=== PATIENT | female | born 1985 | race African-American/Black ===

== ENCOUNTER 2024-05-29 19:07 | Emergency (ER) | payer BC, SELFPAY ==
[2024-05-29 19:42] VITALS: BP 187/121; PULSE 126; RESP 18; TEMP 36.3; O2SAT 96; BMI 34.1
--- NOTE | 2024-05-29 19:42 | ED.GENADULT ---
HPI - General Adult General Chief complaint: General Medical Stated complaint: high blood pressure/heart rate elevated Time Seen by Provider: 05/29/24 20:17 Source: patient Mode of arrival: ambulatory Limitations: no limitations History of Present Illness ED Provider: Asa John DO HPI narrative: 39-year-old female a prolonged history of hypertension who has not taken her oral antihypertensive therapy in the past 3 weeks as well as daily alcohol use of 1 box of wine and a pt of vodka daily in the last drink being yesterday presents to the ED due to elevated blood pressure and heart rate at home. Patient states she has had a lot of anxiety recently with concerns for left breast cancer. She states she went to the appointment today and was ultimately diagnosed with eczema. Her blood pressure and heart rate were elevated at that time then she was advised to report here for further evaluation. She states she does feel she has a problem with alcohol use and has tried to quit in the past, successfully for a couple of weeks and has gone to AA. She states she has not improve with naltrexone or disulfiram in the past. She takes Adderall occasionally, took it today and has not have her antihypertensive therapy for the past few weeks because she has lost follow up with her primary care provider. She denies any symptoms at this time including concerns for withdrawal, nausea, vomiting, abdominal pain, chest pain, difficulty breathing, exertional symptoms, decreased urination or lower extremity swelling. Related Data Previous Rx's ?Medication ?Instructions ?Recorded losartan 50 mg-hydrochlorothiazide 1 tab PO DAILY #30 tabs 05/29/24 12.5 mg tablet Allergies Allergy/AdvReac Type Severity Reaction Status Date / Time No Known Allergies Allergy Verified 05/29/24 19:46 Review of Systems Review of Systems: Yes all other systems are reviewed and are negative COUNTS INCLUDE 234 BEDS AT THE [facility] Social History Social History Alcohol intake: current Alcohol intake frequency: 3 or more drinks per day Alcohol type: wine and hard liquor Smoked in Last 30 Days: No Use of substances other than those prescribed or required for medical reasons: No Advance Directives: No Advance Directives Information Provided: Yes Do you have a plan to hurt others: No Plan Physical Exam ED Vital Signs: Vital Signs - 24 hr 05/29/24 19:42 05/29/24 20:51 Temperature 97.3 F Pulse Rate 126 H 109 H Respiratory Rate 18 16 Blood Pressure 187/121 H 149/108 H Pulse Oximetry 96 97 Oxygen Delivery Method Room Air Room Air BMI result Body Mass Index 34.1 Constitutional: ?Alert, oriented, speaking in full sentences, tearful at times but reassured with conversation HEENT: ?Normocephalic, atraumatic. ? Eyes: ?PERRL, EOMI Neck: ?Supple, nontender Chest: ?No chest wall tenderness Respiratory: ?Lungs clear to auscultation, no increased work of breathing Cardio: ?Regular rate and rhythm, no murmur, 2+ radial and DP pulses symmetrically GI: ?Soft, nondistended, nontender Back: ?Normal range of motion, nontender Skin: ?No rash, no lesions Neuro: ?Alert and oriented to person, place and time, moves all 4 extremities, no focal deficits Extremities: ?No swelling or tenderness, full range of motion Psych: ?Calm, alert and cooperative, appropriate behavior Course Course Course Narrative: This is a Rapid Medical Exam performed in triage by Karli Schaefer PA-C. Full HPI, ROS and PE to be performed by primary ED provider. 39 yo F presenting to the ED c/o HTN at specialist office today 180/104 & HR 122. Admits to Hx HTN however has been out of medications, Nifedipine 60mg (out x3-4wks). Admits to ETOH use, drinks about 1 box of wine & half pint vodka daily. Admits to hx ETOH withdrawl, denies withdrawal seizures. last drink yesterday. denies visual changes, CP/SOB. PE: 190/116, tachycardic, tearful Plan: EKG, labs, ROSAS Medical Decision Making Medical Decision Making MDM Narrative: This is a very pleasant young female presenting with concerns for hypertension and tachycardia prior to arrival. Although she becomes anxious talking about her struggles with alcohol, she does have a heart rate that reduces to below 100 here while at rest and she has no signs of hypertensive emergency clinically. Her labs are all reassuring. Her blood pressure does spike again to 180s over 120s. Because she does not have close follow up with primary care provider, we will start her on combined therapy at this time. We discussed concerns for withdrawal from alcohol. Patient states she does not feel she is withdrawing and she has no features concerning for this. First to try to stop at home. She has no concerns for safety at home. Patient is content with our plan with return precautions provided. At time of my evaluation she is clinically sober and has a ride home (loved one is going to pick her up). Admission/Observation Consideration of admission/observation: Escalation of care including admission/observation considered Lab Data MDM Lab Attestation statement: I reviewed the patient's lab results. Unremarkable CBC, elevation of AST and ALT 287 and 208 respectively, negative troponin, unremarkable lipase and electrolytes, unremarkable renal function, negative hCG, toxicology positive for amphetamines and alcohol of 136. 05/29/24 20:10 05/29/24 20:10 Labs: Lab Results 05/29/24 05/29/24 Range/Units 20:10 20:39 WBC 7.4 (4.8-10.8) X10*3/uL RBC 4.33 (4.20-5.50) X10*6/uL Hgb 14.4 (12.0-16.0) g/dl Hct 39.6 (37.0-47.0) % MCV 91.5 (80.0-98.0) fL MCH 33.3 H (27.0-33.0) pg MCHC 36.4 H (31.0-35.0) g/dl RDW 12.7 (11.0-16.0) % Plt Count 219 (160-400) X10*3/uL MPV 10.1 (9.4-12.3) fL Immature Gran % (Auto) 0.3 (0.0-0.4) % Neut % (Auto) 53.5 (45-73) % Lymph % (Auto) 33.6 (20-40) % [place] % (Auto) 10.2 (2-11) % Eos % (Auto) 1.5 (0-4) % Baso % (Auto) 0.9 (0-2) % Lymph # (Auto) 2.5 (1.2-4.9) X10*3/uL [place] # (Auto) 0.8 (0.1-1.2) X10*3/uL Eos # (Auto) 0.1 (0.0-0.4) X10*3/uL Baso # (Auto) 0.1 (0.0-0.2) X10*3/uL Abs Immat Gran (auto) 0.02 (0.00-0.03) X10*3/uL Absolute Neuts (auto) 4.0 (2.0-8.3) x10*3/uL Absolute Nucleated RBC 0.000 (0.0-0.012) X10*3/uL Nucleated RBC % (auto) 0.0 (0.0-0.2) /100WBC Sodium 142 (135-145) mmol/L Potassium 3.8 (3.3-5.1) mmol/L Chloride 108 (96-108) mmol/L Carbon Dioxide 21 L (22-29) mmol/L Anion Gap 17 (12-20) BUN 12 (9-16) mg/dL Creatinine 0.82 (0.5-1.4) mg/dL Estim Creat Clear Calc 103.8 Estimated GFR > 60 Random Glucose 98 (60-115) mg/dL Calcium 9.4 (8.4-10.2) mg/dL Magnesium 1.9 (1.6-2.6) mg/dL Total Bilirubin 0.8 (0.0-1.0) mg/dL Direct Bilirubin 0.3 (0.0-0.5) mg/dL AST 187 H (5-31) U/L ALT 208 H (0-31) U/L Alkaline Phosphatase 109 (39-117) U/L Troponin I High Sens < 2.7 (<3.5-17.0) ng/L Total Protein 7.3 (6.5-8.0) g/dL Albumin 4.4 (3.5-5.0) g/dL Lipase 17 (8-78) U/L Urine Test NEGATIVE (NEGATIVE) Urine Opiates Screen Not Detected (Not Detect) Ur Buprenorphine Scrn Not Detected (Not Detect) ng/mL Ur Oxycodone Screen Not Detected (Not Detect) ng/mL Urine Methadone Screen Not Detected (Not Detect) ng/mL Urine Fentanyl Screen Not Detected (Not Detect) Ur Barbiturates Screen Not Detected (Not Detect) Ur Phencyclidine Scrn Not Detected (Not Detect) Ur Amphetamines Screen POSITIVE H (Not Detect) U Benzodiazepines Scrn Not Detected (Not Detect) Urine Cocaine Screen Not Detected (Not Detect) U Marijuana (THC) Screen Not Detected (Not Detect) Ethyl Alcohol 136 mg/dL Independent Interpretation I performed an independent interpretation of an: EKG Interpretation: Sinus tachycardia at 116 beats per minute, normal axis, unremarkable intervals with the exception of mild prolongation of QTC, T-wave inversion in lead 3, no diagnostic ST or T-wave abnormalities otherwise, no prior for comparison. Discharge Plan Discharge Clinical Impression: Hypertension Qualifiers: Hypertension type: unspecified Qualified Code(s): I10 - Essential (primary) hypertension Patient Disposition: Home, Self-Care Instructions: Hypertension (ED) Additional Instructions: We prescribed you a medication for your high blood pressure. Please take your blood pressure at home in the morning and at night and log this or when you follow up with your primary care provider. Please evaluate for any adverse effects from the blood pressure medication. Return if you have any concerns for any changes or development of concerning symptoms at home. Prescriptions: New losartan-hydrochlorothiazide 50-12.5 mg tablet 1 tab PO DAILY Qty: 30 0RF Stand Alone Forms: Work/School Release Print Language: Setswana
--- NOTE | 2024-05-29 19:45 | ECG_ITS ---
Test Reason : HTN, TACHY Blood Pressure : */* mmHG Vent. Rate : 116 BPM Atrial Rate : 116 BPM P-R Int : 156 ms QRS Dur : 82 ms QT Int : 330 ms P-R-T Axes : 40 15 17 degrees QTcB Int : 458 ms Sinus tachycardia Possible Left atrial enlargement Borderline ECG No previous ECGs available Referred By: Karli Schaefer Electronically Signed By: Alvaro Shin
[2024-05-29 20:14] LABS: MANUAL DIFF FLAG NO
[2024-05-29 20:15] LABS: Basophils Absolute Auto 0.1 X10*3/uL (0.0-0.2); Basophils Percent Auto 0.9 % (0-2); Eosinophils Absolute Auto 0.1 X10*3/uL (0.0-0.4); Eosinophils Percent Auto 1.5 % (0-4); Hematocrit 39.6 % (37.0-47.0); Hemoglobin 14.4 g/dl (12.0-16.0); Imm Gran Abs Auto 0.02 X10*3/uL (0.00-0.03); Imm Gran Pct Auto 0.3 % (0.0-0.4); Lymphocytes Absolute Auto 2.5 X10*3/uL (1.2-4.9); Lymphocytes Percent Auto 33.6 % (20-40); Mean Corpuscular HGB Conc 36.4 g/dl (31.0-35.0); Mean Corpuscular Hemoglobin 33.3 pg (27.0-33.0); Mean Corpuscular Volume 91.5 fL (80.0-98.0); Mean Platelet Volume 10.1 fL (9.4-12.3); Monocytes Absolute Auto 0.8 X10*3/uL (0.1-1.2); Monocytes Percent Auto 10.2 % (2-11); Neutrophils Percent Auto 53.5 % (45-73); Platelet Count 219 X10*3/uL (160-400); Red Blood Count 4.33 X10*6/uL (4.20-5.50); Red Cell Distribution Width 12.7 % (11.0-16.0); White Blood Count 7.4 X10*3/uL (4.8-10.8)
[2024-05-29 20:34] LABS: Alanine Aminotransferase 208 U/L (0-31); Albumin Level 4.4 g/dL (3.5-5.0); Alkaline Phosphatase 109 U/L (39-117); Anion Gap 17 (12-20); Aspartate Amino Transferase 187 U/L (5-31); Bilirubin Direct 0.3 mg/dL (0.0-0.5); Bilirubin Total 0.8 mg/dL (0.0-1.0); Blood Urea Nitrogen 12 mg/dL (9-16); Calcium 9.4 mg/dL (8.4-10.2); Carbon Dioxide 21 mmol/L (22-29); Chloride 108 mmol/L (96-108); Creatinine Clr Calc Pharmacy 103.8; Estimated Glomerular Filt Rate > 60; Ethanol 136 mg/dL; Glucose Random 98 mg/dL (60-115); Lipase 17 U/L (8-78); Magnesium 1.9 mg/dL (1.6-2.6); Potassium 3.8 mmol/L (3.3-5.1); Sodium 142 mmol/L (135-145); Total Protein 7.3 g/dL (6.5-8.0)
[2024-05-29 20:42] LABS: Troponin-I High Sensitivity < 2.7 ng/L (<3.5-17.0)
[2024-05-29 20:49] LABS: UPreg QC Valid YES; Urine Pregnancy NEGATIVE (NEGATIVE)
[2024-05-29 20:51] VITALS: BP 149/108; PULSE 109; RESP 16; O2SAT 97
[2024-05-29 20:56] LABS: Amphetamine Screen Urine POSITIVE (Not Detect); Barbiturates, Urine Not Detected (Not Detect); Benzodiazepines Screen Urine Not Detected (Not Detect); Buprenorphine Scr Not Detected (Not Detect); Cannabinoid Screen Urine Not Detected (Not Detect); Cocaine Screen Urine Not Detected (Not Detect); Fentanyl, urine Not Detected (Not Detect); Methadone Screen, Urine Not Detected (Not Detect); Opiate Screen Urine Not Detected (Not Detect); Oxycodone Screen Urine Not Detected (Not Detect); Phencyclidine Screen Urine Not Detected (Not Detect)
[2024-05-29 22:10] VITALS: BP 149/108; PULSE 109; RESP 16; TEMP 36.3; O2SAT 97
== END 2024-05-29 22:32 | disposition home or self-care (01) ==
PROVIDERS: Physician Assistant; Emergency Provider Emergency Medicine; PCP Internal Medicine
DX: R00.2 Palpitations (principal); F41.9 Anxiety disorder, unspecified; I10 Essential (primary) hypertension; R00.0 Tachycardia, unspecified; F10.10 Alcohol abuse, uncomplicated; Y90.6 Blood alcohol level of 120-199 mg/100 ml; Z79.899 Other long term (current) drug therapy; Z51.81 Encounter for therapeutic drug level monitoring
CPT/HCPCS: 36415; 80048; 80076; 80307; 81025; 83690; 83735; 84484; 85025; 93005; 99284

== ENCOUNTER → 2024-05-29 19:45 | Outpatient (BNV) | payer BC, SELFPAY | PROVIDERS: Emergency Provider Emergency Medicine; PCP Internal Medicine; Visit Provider Internal Medicine Cardiovascular Disease | DX: R00.0 Tachycardia, unspecified (principal) | CPT/HCPCS: 93010 ==